=== PATIENT | female | born 1960 | race Caucasian/White ===

== ENCOUNTER 2016-07-05 20:43 | Emergency (ER) | payer OTHER ==
[~2016-07-05] VITALS: Ht 175.3 cm; Wt 62.0 kg
[~2016-07-05 20:43] MED LIST: ARIP20TA8 PO; BENZ2TAB10 PO; CLON.5 PO; HYDR25TA PO; LORA10CA PO; RISP3 PO; SIMV5TAB6 PO
[2016-07-05] MEDS ORDERED: ACET-2902 PO (20:50)
[2016-07-05] MEDS ORDERED: CALC-1009 PO (20:50)
[2016-07-05] MEDS ORDERED: NAPR-58 PO (20:50)
[2016-07-05] MEDS ORDERED: QUET200T PO (20:50)
[2016-07-05 21:01] LABS: BASOPHILS % (AUTO) 0.7 % (0.0-2.0); HEMATOCRIT 40.2 % (36-46); HEMOGLOBIN 13.3 g/dL (12.0-16.0); LYMPHOCYTES # (AUTO) 2.1 K/uL (1.0-4.8); MEAN CORPUSCULAR HEMOGLOBIN 29.8 pg (26.0-34.0); MEAN CORPUSCULAR VOLUME 90 fL (80-100); MONOCYTES # (AUTO) 0.8 K/uL (0.1-1.0); NEUTROPHILS # (AUTO) 6.6 K/uL (1.8-7.7); NEUTROPHILS % (AUTO) 67.3 % (40.0-70.0); PLATELET COUNT (AUTO) 356 K/uL (150-450); RED BLOOD CELL COUNT(AUTO) 4.46 MIL/uL (4.00-5.20); RED CELL DISTRIBUTION WIDTH 13.7 % (11.5-14.5); WHITE BLOOD COUNT (AUTO) 9.8 K/uL (4.5-11.0)
[2016-07-05 21:11] LABS: CALCIUM, TOTAL 9.8 mg/dL (8.8-10.5); CREATININE 1.65 mg/dL (0.60-1.30); POTASSIUM 3.7 mmol/L (3.5-5.1)
[2016-07-05 21:17] LABS: ALBUMIN 4.3 g/dL (3.4-5.0); BILIRUBIN,TOTAL 0.7 mg/dL (0.1-1.0); TOTAL PROTEIN, SERUM 7.9 g/dL (6.4-8.2)
[2016-07-05] MEDS ORDERED: KETOROLAC TROMETHAMINE 30 MG/ML VIAL IVP ONE (21:30)
[2016-07-05] MEDS ORDERED: ONDANSETRON HCL 4 MG/2 ML VIAL IVP ONE (21:30)
[2016-07-05] MEDS ORDERED: SODIUM CHLORIDE 0.9% 1,000 ML IV ONE (22:00)
[2016-07-05 23:49] VITALS: BP 122/68
== END 2016-07-05 23:50 | disposition home or self-care (01) ==
LOC: EMS 20:44
DX: K80.20 Calculus of gallbladder without cholecystitis without obstruction (principal); Z88.0 Allergy status to penicillin
CPT/HCPCS: 36415; 71010; 76705; 80053; 83690; 84484; 85025; 93005; 96361; 96374; 96375; 99285; J1885; J2405; J7030

== ENCOUNTER 2016-11-22 09:53 | Emergency (ER) | payer OTHER ==
[~2016-11-22] VITALS: Ht 175.3 cm; Wt 77.0 kg
[~2016-11-22 09:53] MED LIST changes: +ACET-2902 PO; -ARIP20TA8 PO; -BENZ2TAB10 PO; +CALC-1009 PO; -CLON.5 PO; -HYDR25TA PO; -LORA10CA PO; +NAPR-58 PO; +QUET200T PO; -RISP3 PO; -SIMV5TAB6 PO
[2016-11-22] MEDS ORDERED: HYDR25TA PO (10:09)
[2016-11-22] MEDS ORDERED: LISI-662 PO (10:09)
[2016-11-22] MEDS ORDERED: BENZ1TAB10 PO (10:09)
[2016-11-22] MEDS ORDERED: RISP4 PO (10:09)
[2016-11-22 10:35] VITALS: BP 151/77
[2016-11-22] MEDS ORDERED: IBUPROFEN 400 MG TABLET PO ONE (10:45)
== END 2016-11-22 11:29 | disposition home or self-care (01) ==
LOC: EMS 09:54
DX: Z76.0 Encounter for issue of repeat prescription (principal); R05 Cough; Z88.0 Allergy status to penicillin
CPT/HCPCS: 99283

== ENCOUNTER 2017-02-27 11:26 | Inpatient (IN) | payer MEDICAID, OTHER ==
[~2017-02-27] VITALS: Ht 175.3 cm; Wt 104.0 kg
[~2017-02-27 11:26] MED LIST changes: +BENZ1TAB10 PO; +HYDR25TA PO; +LISI-662 PO; +RISP4 PO
[2017-02-27] MEDS ORDERED: CETI-290 PO (13:20)
[2017-02-27] MEDS ORDERED: DOCU250C91 PO (13:20)
[2017-02-27 14:17] LABS: ANION GAP 10 mmol/L (8-16); CALCIUM, TOTAL 10.3 mg/dL (8.8-10.5); CARBON DIOXIDE 28 mmol/L (22-29); CHLORIDE 100 mmol/L (98-107); CREATININE 0.93 mg/dL (0.60-1.30); GLOMERULAR FILTR. RATE CALC > 60 mL/min (>60); POTASSIUM 4.1 mmol/L (3.5-5.1); SODIUM SERUM 138 mmol/L (136-145); UREA NITROGEN, BLOOD 23 mg/dL (7-18)
[2017-02-27 14:18] LABS: BASOPHILS # (AUTO) 0.03 K/uL (0.00-0.20); BASOPHILS % (AUTO) 0.3 % (0.0-2.0); EOSINOPHILS % (AUTO) 1.84 % (1.0-6.0); HEMATOCRIT 42.1 % (36-46); HEMOGLOBIN 14.2 g/dL (12.0-16.0); LYMPHOCYTES # (AUTO) 1.5 K/uL (1.0-4.8); LYMPHOCYTES % (AUTO) 13.8 % (22.0-44.0); MEAN CORPUSCULAR HEMOGLOBIN 29.5 pg (26.0-34.0); MEAN CORPUSCULAR HGB CONC 33.7 G/dL (31.0-37.0); MEAN CORPUSCULAR VOLUME 87 fL (80-100); MONOCYTES # (AUTO) 0.6 K/uL (0.1-1.0); MONOCYTES % (AUTO) 5.1 % (2.0-9.0); NEUTROPHILS # (AUTO) 8.8 K/uL (1.8-7.7); NEUTROPHILS % (AUTO) 79.1 % (40.0-70.0); PLATELET COUNT (AUTO) 299 K/uL (150-450); RED BLOOD CELL COUNT(AUTO) 4.81 MIL/uL (4.00-5.20); RED CELL DISTRIBUTION WIDTH 13.9 % (11.5-14.5); WHITE BLOOD COUNT (AUTO) 11.1 K/uL (4.5-11.0)
[2017-02-27 14:21] LABS: ALANINE AMINOTRANSFERASE 21 U/L (12-78); ALBUMIN 4.4 g/dL (3.4-5.0); ASPARTATE AMINOTRANSFERASE 13 U/L (15-37); BILIRUBIN,TOTAL 0.4 mg/dL (0.1-1.0); TOTAL PROTEIN, SERUM 7.4 g/dL (6.4-8.2)
[2017-02-27] MEDS ORDERED: HALOPERIDOL 5 MG TABLET PO ONE (15:45)
[2017-02-27] MEDS ORDERED: HALOPERIDOL 5 MG TABLET PO PRN (16:30)
[2017-02-27] MEDS ORDERED: ZOLPIDEM TARTRATE 10 MG TABLET PO PRN (16:30)
[2017-02-27] MEDS ORDERED: LORazepam 2 MG TABLET PO PRN (16:30)
[2017-02-27 18:30] VITALS: BP 118/74
[2017-02-27] MEDS ORDERED: PNEUMOCOCCAL VACCINE POLYVALENT 0.5 ML VIAL [PPSV23] IM ONE (19:15)
[2017-02-28] MEDS ORDERED: BENZOCAINE/MENTHOL LOZENGE MM PRN (07:00)
[2017-02-28] MEDS ORDERED: ALBUTEROL SULFATE HFA 90 MCG/PUFF 8 GM INHALER IH PRN (07:00)
[2017-02-28] MEDS ORDERED: LOPERAMIDE HCL 2 MG CAPSULE PO PRN (07:00)
[2017-02-28] MEDS ORDERED: PETROLATUM,WHITE 71 GM JELLY TP PRN (07:00)
[2017-02-28] MEDS ORDERED: MAGNESIUM HYDROXIDE SUSPENSION 30 ML UDCUP PO PRN (07:00)
[2017-02-28] MEDS ORDERED: IBUPROFEN 600 MG TABLET PO PRN (07:00)
[2017-02-28] MEDS ORDERED: BACITRACIN 28.4 GM OINTMENT TP PRN (07:00)
[2017-02-28] MEDS ORDERED: ONDANSETRON HCL 4 MG TABLET PO PRN (07:00)
[2017-02-28] MEDS ORDERED: MAG HYDROX/AL HYDROX/SIMETH ES 30 ML SUSPENSION UDCUP PO PRN (07:00)
[2017-02-28] MEDS ORDERED: ACETAMINOPHEN 325 MG TABLET PO PRN (07:00)
[2017-02-28] MEDS ORDERED: CloNIDine HCL 0.1 MG TABLET PO PRN (07:00)
[2017-02-28 07:05] VITALS: BP 122/81
[2017-02-28 08:01] VITALS: BP 119/67
[2017-02-28] MEDS: LISINOPRIL 20 MG TABLET PO SCH (08:48)
[2017-02-28] MEDS: DOCUSATE SODIUM 250 MG CAPSULE PO SCH (08:48)
[2017-02-28] MEDS: HYDROCHLOROTHIAZIDE 25 MG TABLET PO SCH (08:48)
[2017-02-28] MEDS ORDERED: BENZOCAINE/MENTHOL LOZENGE PO PRN (12:45)
[2017-02-28] MEDS: GuaiFENesin/D-METHORPHAN [SUGAR-FREE] 200-20MG/10 ML SYRUP UDCUP PO PRN (12:54)
[2017-02-28 16:07] VITALS: BP 123/76
[2017-02-28] MEDS: BENZTROPINE MESYLATE 1 MG TABLET PO SCH (17:29)
[2017-02-28] MEDS: RisperiDONE 3 MG TABLET PO SCH (17:29)
[2017-02-28] MEDS ORDERED: SODIUM CHLORIDE 0.65% 44 ML NASAL SPRAY NASAL PRN (20:15)
[2017-03-01 00:01] VITALS: BP 121/81
[2017-03-01] MEDS: GuaiFENesin/D-METHORPHAN [SUGAR-FREE] 200-20MG/10 ML SYRUP UDCUP PO PRN ×2 (00:27→12:05)
[2017-03-01] MEDS: LISINOPRIL 20 MG TABLET PO SCH (08:19)
[2017-03-01] MEDS: BENZTROPINE MESYLATE 1 MG TABLET PO SCH ×2 (08:19→16:21)
[2017-03-01] MEDS: HYDROCHLOROTHIAZIDE 25 MG TABLET PO SCH (08:19)
[2017-03-01] MEDS: RisperiDONE 3 MG TABLET PO SCH ×2 (08:19→16:21)
[2017-03-01] MEDS: DOCUSATE SODIUM 250 MG CAPSULE PO SCH (08:19)
[2017-03-01 08:24] VITALS: BP 149/67
[2017-03-01 09:21] LABS: CHOL/HDL RATIO 4.5 (3.9-5.7)
[2017-03-01 16:37] VITALS: BP 113/78
[2017-03-02] MEDS: GuaiFENesin/D-METHORPHAN [SUGAR-FREE] 200-20MG/10 ML SYRUP UDCUP PO PRN ×2 (00:13→09:21)
[2017-03-02 00:16] VITALS: BP 114/79
[2017-03-02 08:27] VITALS: BP 118/70
[2017-03-02] MEDS: BENZTROPINE MESYLATE 1 MG TABLET PO SCH ×2 (08:57→16:04)
[2017-03-02] MEDS: HYDROCHLOROTHIAZIDE 25 MG TABLET PO SCH (08:58)
[2017-03-02] MEDS: DOCUSATE SODIUM 250 MG CAPSULE PO SCH (08:58)
[2017-03-02] MEDS: RisperiDONE 3 MG TABLET PO SCH ×2 (08:58→16:04)
[2017-03-02] MEDS: LISINOPRIL 20 MG TABLET PO SCH (08:58)
[2017-03-02 16:14] VITALS: BP 115/79
[2017-03-03] MEDS: GuaiFENesin/D-METHORPHAN [SUGAR-FREE] 200-20MG/10 ML SYRUP UDCUP PO PRN ×2 (00:19→12:32)
[2017-03-03 00:35] VITALS: BP 120/81
[2017-03-03 08:30] VITALS: BP 125/67
[2017-03-03] MEDS: RisperiDONE 3 MG TABLET PO SCH (09:30)
[2017-03-03] MEDS: BENZTROPINE MESYLATE 1 MG TABLET PO SCH (09:30)
[2017-03-03] MEDS: HYDROCHLOROTHIAZIDE 25 MG TABLET PO SCH (09:30)
[2017-03-03] MEDS: DOCUSATE SODIUM 250 MG CAPSULE PO SCH (09:30)
[2017-03-03] MEDS: LISINOPRIL 20 MG TABLET PO SCH (09:30)
[2017-03-03] MEDS ORDERED: RISP3 PO (13:14)
== END 2017-03-03 15:15 | disposition home or self-care (01) | DRG 750 ==
LOC: EMS 11:26 → B2S 17:02
PROVIDERS: ADMIT Psychiatry & Neurology Psychiatry; ATTEND Psychiatry & Neurology Psychiatry
DX: F20.0 Paranoid schizophrenia (principal); Z59.0 Homelessness; I10 Essential (primary) hypertension; G47.00 Insomnia, unspecified; J44.9 Chronic obstructive pulmonary disease, unspecified; K59.00 Constipation, unspecified; Z79.899 Other long term (current) drug therapy; F17.200 Nicotine dependence, unspecified, uncomplicated; E66.9 Obesity, unspecified; E55.9 Vitamin D deficiency, unspecified; M19.90 Unspecified osteoarthritis, unspecified site; G89.29 Other chronic pain; M54.9 Dorsalgia, unspecified; R09.81 Nasal congestion; Z71.6 Tobacco abuse counseling; Z68.33 Body mass index [BMI] 33.0-33.9, adult; Z88.0 Allergy status to penicillin
CPT/HCPCS: 99285; G0480

== ENCOUNTER 2017-10-22 09:31 | Emergency (ER) | payer MEDICAID, OTHER ==
[~2017-10-22] VITALS: Ht 175.3 cm; Wt 62.3 kg
[~2017-10-22 09:31] MED LIST changes: -ACET-2902 PO; -CALC-1009 PO; +DOCU250C91 PO; -NAPR-58 PO; -QUET200T PO; +RISP3 PO; -RISP4 PO
[2017-10-22 10:24] LABS: BASOPHILS % (AUTO) 0.2 % (0.0-2.0); EOSINOPHILS % (AUTO) 0.1 % (1.0-6.0); HEMATOCRIT 37.1 % (36-46); LYMPHOCYTES # (AUTO) 1.3 K/uL (1.0-4.8); MEAN CORPUSCULAR HEMOGLOBIN 29.9 pg (26.0-34.0); MEAN CORPUSCULAR VOLUME 85 fL (80-100); MONOCYTES # (AUTO) 0.7 K/uL (0.1-1.0); MONOCYTES % (AUTO) 6.1 % (2.0-9.0); NEUTROPHILS # (AUTO) 8.8 K/uL (1.8-7.7); NEUTROPHILS % (AUTO) 81.6 % (40.0-70.0); PLATELET COUNT (AUTO) 256 K/uL (150-450); RED BLOOD CELL COUNT(AUTO) 4.35 MIL/uL (4.00-5.20); RED CELL DISTRIBUTION WIDTH 14.6 % (11.5-14.5)
[2017-10-22 10:30] LABS: CALCIUM, TOTAL 9.3 mg/dL (8.8-10.5); CREATININE 1.28 mg/dL (0.60-1.30); POTASSIUM 3.5 mmol/L (3.5-5.1)
[2017-10-22 10:35] LABS: ALBUMIN 3.8 g/dL (3.4-5.0); BILIRUBIN,TOTAL 0.5 mg/dL (0.1-1.0); TOTAL PROTEIN, SERUM 7.7 g/dL (6.4-8.2)
[2017-10-22] MEDS ORDERED: HYDROCODONE/ACETAMINOPHEN 5-325 MG TABLET PO ONE (12:00)
[2017-10-22 12:50] VITALS: BP 102/68
== END 2017-10-22 13:27 | disposition home or self-care (01) ==
LOC: EMS 09:33
DX: R07.89 Other chest pain (principal); R06.02 Shortness of breath; R11.10 Vomiting, unspecified; M19.90 Unspecified osteoarthritis, unspecified site; F20.9 Schizophrenia, unspecified; G89.29 Other chronic pain; Z59.0 Homelessness; Z88.0 Allergy status to penicillin; Z79.899 Other long term (current) drug therapy
CPT/HCPCS: 93005; 99285

== ENCOUNTER 2022-10-18 13:43 | Emergency (ER) | payer OTHER ==
[~2022-10-18] VITALS: Ht 175.3 cm; Wt 72.7 kg
[~2022-10-18 13:43] MED LIST changes: -BENZ1TAB10 PO; +BENZ1TAB84 PO; +DOCU-352 PO; -DOCU250C91 PO; -HYDR25TA PO; +HYDR25TA2 PO; -LISI-662 PO; +LISI-894 PO; -RISP3 PO; +RISP3TAB35 PO
[2022-10-18 13:58] VITALS: TEMP 98.5
[2022-10-18] MEDS ORDERED: ATOR20TA65 PO (14:01)
[2022-10-18] MEDS ORDERED: OLAN15TA36 PO (14:01)
[2022-10-18] MEDS ORDERED: RISP4TAB73 PO (14:01)
[2022-10-18] MEDS ORDERED: IBUP-2070 PO (14:01)
[2022-10-18] MEDS ORDERED: QUET400T13 PO (14:01)
[2022-10-18] MEDS ORDERED: LISI20TA24 PO (14:01)
[2022-10-18] MEDS ORDERED: SERT-438 PO (14:01)
[2022-10-18] MEDS ORDERED: CETI10TA58 PO (14:01)
[2022-10-18] MEDS ORDERED: FAMO40TA7 PO (14:01)
[2022-10-18] MEDS ORDERED: GABA-529 PO (14:01)
[2022-10-18] MEDS ORDERED: KETOROLAC TROMETHAMINE 30 MG/ML VIAL IM ONE (15:45)
[2022-10-18] MEDS ORDERED: CYCLOBENZAPRINE HCL 10 MG TABLET PO ONE (15:45)
[2022-10-18] MEDS ORDERED: TRAZ-252 PO (16:54)
[2022-10-18] MEDS ORDERED: CYCL-448 PO (16:54)
[2022-10-18 17:02] VITALS: BP 142/95; PULSE 84; RESP 18
== END 2022-10-18 23:43 | disposition home or self-care (01) ==
LOC: EMS 13:49
DX: F20.9 Schizophrenia, unspecified (principal); R51.9 Headache, unspecified; G47.00 Insomnia, unspecified; M19.90 Unspecified osteoarthritis, unspecified site; G89.29 Other chronic pain; Z59.00 Homelessness unspecified; Z88.0 Allergy status to penicillin
CPT/HCPCS: 99283; 96372; J1885